=== PATIENT | male | born 1990 | race Caucasian/White ===

== ENCOUNTER 2017-09-13 15:50 | Emergency (ER) | payer SELFPAY ==
[~2017-09-13] VITALS: Ht 193 cm; Wt 160.2 kg
[~2017-09-13 15:50] MED LIST: BACTRIM DS1 TAB PO; DOXYCYCL HYC100 MG PO; LEVAQUIN750 MG PO; MUPIROCIN2 % EX; NAPROSYN500 MG PO; NO MEDS
[2017-09-13 16:46] VITALS: BP 141/87
== END 2017-09-13 16:46 | disposition home or self-care (01) | DRG 607 ==
LOC: ED 15:50
DX: R21 Rash and other nonspecific skin eruption (principal); Y92.511 Restaurant or cafe as the place of occurrence of the external cause

== ENCOUNTER 2018-10-14 09:17 | Emergency (ER) | payer SELFPAY ==
[~2018-10-14] VITALS: Ht 193 cm; Wt 120.0 kg
[2018-10-14] MEDS ORDERED: CYCLOBENZAPR5 MG PO (10:01)
[2018-10-14] MEDS ORDERED: MOTRIN400 MG PO (10:01)
[2018-10-14 10:05] VITALS: BP 128/77
== END 2018-10-14 10:05 | disposition home or self-care (01) | DRG 563 ==
LOC: ED 09:17
DX: S39.012A Strain of muscle, fascia and tendon of lower back, initial encounter (principal); M54.5 Low back pain; X50.0XXA Overexertion from strenuous movement or load, initial encounter; Y93.9 Activity, unspecified; Y92.89 Other specified places as the place of occurrence of the external cause

== ENCOUNTER 2019-06-29 19:07 | Emergency (ER) | payer OTHER ==
[~2019-06-29] VITALS: Ht 193 cm; Wt 153.0 kg
[~2019-06-29 19:07] MED LIST changes: +CYCLOBENZAPR5 MG PO; +MOTRIN400 MG PO
[2019-06-29] MEDS ORDERED: CIPROFLOXACIN500 M1 PO (19:56)
[2019-06-29] MEDS ORDERED: IBUPROFEN600 MG PO (19:56)
[2019-06-29 20:15] VITALS: BP 140/80
== END 2019-06-29 20:15 | disposition home or self-care (01) | DRG 153 ==
LOC: ED 19:07
DX: H66.91 Otitis media, unspecified, right ear (principal); F17.210 Nicotine dependence, cigarettes, uncomplicated

== ENCOUNTER 2021-09-22 05:50 | Emergency (ER) | payer SELFPAY ==
[~2021-09-22] VITALS: Ht 193 cm; Wt 280.0 kg
[~2021-09-22 05:50] MED LIST changes: +CIPROFLOXACIN500 M1 PO; +IBUPROFEN600 MG PO
[2021-09-22] MEDS ORDERED: HYDROCO/APAP1 TA9 PO (06:24)
[2021-09-22] MEDS ORDERED: CLEOCIN300 MG PO (06:24)
[2021-09-22 06:30] VITALS: BP 167/102
[2021-09-23] MEDS ORDERED: LISINOPRIL2.5 MG PO (12:19)
[2021-09-23] MEDS ORDERED: METFORMIN HCL500 M1 PO (12:19)
== END 2021-09-22 06:30 | disposition home or self-care (01) | DRG 159 ==
LOC: ED 05:50
DX: K04.7 Periapical abscess without sinus (principal); K02.9 Dental caries, unspecified; F17.200 Nicotine dependence, unspecified, uncomplicated

== ENCOUNTER 2021-09-23 11:30 | Emergency (ER) | payer SELFPAY ==
[~2021-09-23] VITALS: Ht 193 cm; Wt 136.0 kg
[~2021-09-23 11:30] MED LIST changes: +CLEOCIN300 MG PO; +HYDROCO/APAP1 TA9 PO
[2021-09-23 12:08] LABS: IMMATURE GRANULOCYTES 0.2 % (0.0-5.0); MEAN CELL VOLUME 97.6 fL CALC (80.0-100.0); MEAN CORPUSCULAR HGB CONC 35.8 g/dL CAL (32.0-36.0); NEUT# 5.24 thou/uL (1.82-7.42); RED BLOOD COUNT 5.49 mill/uL (4.70-6.10); RED CELL DISTRI WIDTH 11.5 % (11.5-15.5)
[2021-09-23] MEDS ORDERED: METFORMIN HCL500 M1 PO (12:19)
[2021-09-23] MEDS ORDERED: LISINOPRIL2.5 MG PO (12:19)
[2021-09-23 12:24] LABS: BILIRUBIN, TOTAL 1.3 mg/dL (0.0-1.4); BUN 17 mg/dL (9-20); BUN/CREATININE RATIO 24 (12-20 (CALC)); CARBON DIOXIDE 29 mmol/l (22-30); CHLORIDE 96 mmol/l (95-108); CREATININE 0.7 mg/dL (0.7-1.3); GFR > 60 ML/MIN (>=60 (CALC)); GFR FOR AFR.AMER. > 60 ML/MIN (>=60 (CALC)); SODIUM 136 mmol/l (137-146)
[2021-09-23 12:25] LABS: HEMATOCRIT 53.6 % (39.0-50.0); HEMOGLOBIN 19.2 g/dl (14.0-18.0)
[2021-09-23 12:26] LABS: ALBUMIN 4.8 g/dL (3.2-5.0); ALKALINE PHOSPHATASE 180 u/l (38-126); ANION GAP 16 (6-22 (CALC)); POTASSIUM 5.2 mmol/l (3.5-5.1); SGOT/AST 116 u/l (17-59); TOTAL PROTEIN 8.1 g/dL (6.3-8.2)
[2021-09-23 12:38] LABS: MYOGLOBIN 23 ng/mL (0 - 121)
[2021-09-23 14:34] VITALS: BP 140/77
== END 2021-09-23 14:34 | disposition home or self-care (01) | DRG 639 ==
LOC: ED 11:30
PROVIDERS: Emergency Medicine
DX: E11.65 Type 2 diabetes mellitus with hyperglycemia (principal); R74.8 Abnormal levels of other serum enzymes; F10.10 Alcohol abuse, uncomplicated; F17.200 Nicotine dependence, unspecified, uncomplicated; Z79.84 Long term (current) use of oral hypoglycemic drugs; Z91.19 Patient's noncompliance with other medical treatment and regimen

== ENCOUNTER 2021-12-06 19:31 | Emergency (ER) | payer SELFPAY ==
[~2021-12-06] VITALS: Ht 193 cm; Wt 134.0 kg
[~2021-12-06 19:31] MED LIST changes: +LISINOPRIL2.5 MG PO; +METFORMIN HCL500 M1 PO
[2021-12-06] MEDS ORDERED: CLINDAMYCIN300 M1 PO (21:48)
[2021-12-06] MEDS ORDERED: VOLTAREN75 MG PO (21:48)
[2021-12-06] MEDS ORDERED: TRAMADOL HCL50 MG PO (21:48)
[2021-12-06 22:22] VITALS: BP 132/93
== END 2021-12-06 22:22 | disposition home or self-care (01) | DRG 159 ==
LOC: ED 19:31
DX: K04.7 Periapical abscess without sinus (principal); K02.9 Dental caries, unspecified; E11.9 Type 2 diabetes mellitus without complications; F17.200 Nicotine dependence, unspecified, uncomplicated; Z79.84 Long term (current) use of oral hypoglycemic drugs

== ENCOUNTER 2022-11-25 21:58 | Emergency (ER) | payer OTHER ==
[~2022-11-25] VITALS: Ht 193 cm; Wt 131.8 kg
[~2022-11-25 21:58] MED LIST changes: +CLINDAMYCIN300 M1 PO; +TRAMADOL HCL50 MG PO; +VOLTAREN75 MG PO
[2022-11-25 22:46] VITALS: BP 151/101
[2022-11-25 23:00] VITALS: BP 146/93
[2022-11-25] MEDS ORDERED: LORTAB 1010 MG PO (23:09)
[2022-11-25] MEDS ORDERED: CLEOCIN300 MG PO (23:09)
[2022-11-25 23:15] VITALS: BP 146/96
== END 2022-11-26 00:08 | disposition home or self-care (01) | DRG 159 ==
LOC: ED 21:58
DX: K04.7 Periapical abscess without sinus (principal)

== ENCOUNTER 2023-01-26 20:02 | Observation (INO) | payer OTHER ==
[~2023-01-26] VITALS: Ht 193 cm; Wt 127.5 kg
[~2023-01-26 20:02] MED LIST changes: +LORTAB 1010 MG PO
[2023-01-26 20:18] VITALS: BP 151/100
[2023-01-26 20:30] VITALS: BP 150/93
[2023-01-26 20:45] VITALS: BP 139/91
[2023-01-26 21:15] LABS: BASO% 0.2 % (0-3); EOS% 1.8 % (0-8); HEMATOCRIT 55.3 % (39.0-50.0); HEMOGLOBIN 19.5 g/dl (14.0-18.0); IMMATURE GRANULOCYTES 0.2 % (0.0-5.0); MEAN CELL VOLUME 100.4 fL CALC (80.0-100.0); MEAN CORPUSCULAR HGB 35.4 pG CALC (26.0-32.0); MEAN CORPUSCULAR HGB CONC 35.3 g/dL CAL (32.0-36.0); MONO% 11.5 % (2-13); NEUT# 5.27 thou/uL (1.82-7.42); NEUT% 62.3 % (42-76); RED BLOOD COUNT 5.51 mill/uL (4.70-6.10); RED CELL DISTRI WIDTH 12.5 % (11.5-15.5)
[2023-01-26 21:16] LABS: GFR FOR AFR.AMER. > 60 ML/MIN (>=60 (CALC)); GFR OTHER RACES > 60 ML/MIN (>=60 (CALC))
[2023-01-26 21:28] LABS: ALBUMIN 4.2 g/dL (3.2-5.0); ALKALINE PHOSPHATASE 95 u/l (38-126); BUN 13 mg/dL (9-20); BUN/CREATININE RATIO 19 (12-20 (CALC)); CARBON DIOXIDE 27 mmol/l (22-30); CHLORIDE 102 mmol/l (95-108); CREATININE 0.7 mg/dL (0.7-1.3); GFR FOR AFR.AMER. > 60 ML/MIN (>=60 (CALC)); GFR OTHER RACES > 60 ML/MIN (>=60 (CALC)); SGOT/AST 44 u/l (17-59); SODIUM 137 mmol/l (137-146); TOTAL PROTEIN 6.9 g/dL (6.3-8.2)
[2023-01-26 21:29] LABS: ANION GAP 12 (6-22 (CALC)); BILIRUBIN, TOTAL 2.3 mg/dL (0.2-1.3); POTASSIUM 4.1 mmol/l (3.5-5.1)
[2023-01-26 21:30] LABS: ACT PARTIAL THROMBO TIME 24.3 SECONDS (20.0-32.5); INTERNATIONAL NORMALIZED RATIO 1.2 RATIO (0.7-1.3)
[2023-01-26 21:33] VITALS: BP 138/88
[2023-01-26 22:48] LABS: URINE BILIRUBIN - DIPSTICK NEGATIVE (NEGATIVE); URINE BLOOD DIPSTICK NEGATIVE (NEGATIVE); URINE COLOR YELLOW; URINE GLUCOSE - DIPSTICK >=1000 mg/dL (NEGATIVE); URINE KETONE 15 mg/dL (NEGATIVE); URINE LEUK ESTERASE NEGATIVE (NEGATIVE); URINE PH 5.5 (4.5-8.0); URINE PROTEIN - DIPSTICK NEGATIVE (NEG-TRACE); URINE UROBILINOGEN - DIPSTICK 0.2 E.U./dL (0.2)
[2023-01-26 22:50] LABS: URINE NITRITE - DIPSTICK NEGATIVE (Negative)
[2023-01-26 23:22] VITALS: BP 140/91
[2023-01-26 23:37] LABS: ALBUMIN 4.1 g/dL (3.2-5.0); ALKALINE PHOSPHATASE 97 u/l (38-126); BILIRUBIN, TOTAL 2.4 mg/dL (0.2-1.3); CALCULATED LDLCHOLESTEROL 85 mg/dL (62-129 (CALC)); CHOLESTEROL HDL RATIO 3.7 (<4.4 (CALC)); HDL CHOLESTEROL 47 mg/dL (39.0-59.0); SGOT/AST 42 u/l (17-59); TOTAL CHOLESTEROL 173 mg/dl (0-199); TOTAL PROTEIN 7.4 g/dL (6.3-8.2); TOTAL TRIGLYCERIDES 206 mg/dl (0-149); VLDL CHOLESTROL 41 mg/dl (5-56 (CALC))
[2023-01-27 03:29] VITALS: BP 127/81
[2023-01-27 06:00] VITALS: BP 136/86
[2023-01-27 08:38] LABS: BASO% 0.1 % (0-3); EOS% 1.6 % (0-8); HEMATOCRIT 54.6 % (39.0-50.0); HEMOGLOBIN 19.1 g/dl (14.0-18.0); IMMATURE GRANULOCYTES 0.1 % (0.0-5.0); LYMPH% 19.4 % (15-41); MEAN CELL VOLUME 100.7 fL CALC (80.0-100.0); MEAN CORPUSCULAR HGB 35.2 pG CALC (26.0-32.0); MONO% 12.4 % (2-13); NEUT# 4.92 thou/uL (1.82-7.42); NEUT% 66.4 % (42-76); RED BLOOD COUNT 5.42 mill/uL (4.70-6.10); RED CELL DISTRI WIDTH 12.5 % (11.5-15.5)
[2023-01-27 08:52] LABS: ANION GAP 12 (6-22 (CALC)); BUN 9 mg/dL (9-20); BUN/CREATININE RATIO 16 (12-20 (CALC)); CARBON DIOXIDE 24 mmol/l (22-30); CHLORIDE 101 mmol/l (95-108); CREATININE 0.6 mg/dL (0.7-1.3); GFR FOR AFR.AMER. > 60 ML/MIN (>=60 (CALC)); GFR OTHER RACES > 60 ML/MIN (>=60 (CALC)); POTASSIUM 4.2 mmol/l (3.5-5.1); SODIUM 133 mmol/l (137-146)
[2023-01-27 10:00] VITALS: BP 141/86
[2023-01-27] MEDS ORDERED: ASPIRIN ADULT L81 M2 PO (11:15)
[2023-01-27] MEDS ORDERED: PLAVIX75 MG PO (11:15)
[2023-01-27] MEDS ORDERED: ATORVASTATIN CA40 MG PO (11:16)
== END 2023-01-27 11:53 | disposition home or self-care (01) | DRG 93 ==
LOC: ED 20:02 → ED-I 22:48 → ED 22:56 → MS2 22:57
PROVIDERS: Family Medicine; ADMIT Internal Medicine; ATTEND Internal Medicine
DX: R20.0 Anesthesia of skin (principal); I10 Essential (primary) hypertension; E11.9 Type 2 diabetes mellitus without complications; E66.9 Obesity, unspecified; F17.200 Nicotine dependence, unspecified, uncomplicated; Z79.84 Long term (current) use of oral hypoglycemic drugs
CPT/HCPCS: G0378; Q9967

== ENCOUNTER 2023-01-28 12:20 | Emergency (ER) | payer OTHER ==
[~2023-01-28 12:20] MED LIST changes: +ASPIRIN ADULT L81 M2 PO; +ATORVASTATIN CA40 MG PO; +PLAVIX75 MG PO
== END 2023-01-28 12:56 | disposition left against medical advice (07) | DRG 951 ==
LOC: ED 12:20 → LWOBS 12:56
DX: Z53.21 Procedure and treatment not carried out due to patient leaving prior to being seen by health care provider (principal)

== ENCOUNTER 2023-05-03 06:09 | Emergency (ER) | payer OTHER ==
[~2023-05-03] VITALS: Ht 193 cm; Wt 130.0 kg
[2023-05-03 06:19] VITALS: BP 110/84
[2023-05-03] MEDS ORDERED: CLINDAMYCIN300 M1 PO (06:33)
== END 2023-05-03 06:52 | disposition home or self-care (01) | DRG 159 ==
LOC: ED 06:09
DX: K01.1 Impacted teeth (principal); K02.9 Dental caries, unspecified; K04.7 Periapical abscess without sinus; I10 Essential (primary) hypertension; E11.9 Type 2 diabetes mellitus without complications; F17.200 Nicotine dependence, unspecified, uncomplicated; Z79.84 Long term (current) use of oral hypoglycemic drugs; Z88.0 Allergy status to penicillin